=== PATIENT | male | born 1975 | race Caucasian/White ===

== ENCOUNTER 2019-07-26 10:02 | Emergency (ER) | payer OTHER ==
[2019-07-26 10:21] VITALS: BP 140/86; PULSE 98; TEMP 98.3; BMI 40.6
[2019-07-26] MEDS ORDERED: NAPROXEN 500 MG TABLET (FP) PO ONE (11:08)
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
[2019-07-26] MEDS ORDERED: NAPROXEN 500 MG TABLET (FP) ONE (11:23)
== END 2019-07-26 13:30 | disposition home or self-care (01) ==
LOC: JERFT 10:02
DX: M79.672 Pain in left foot (principal); V18.0XXA Pedal cycle driver injured in noncollision transport accident in nontraffic accident, initial encounter; Y92.488 Other paved roadways as the place of occurrence of the external cause; Y93.55 Activity, bike riding; Y99.8 Other external cause status; E11.9 Type 2 diabetes mellitus without complications; J45.909 Unspecified asthma, uncomplicated
CPT/HCPCS: 73610-TC-LT-FY; 73630-TC-LT; 99282-25

== ENCOUNTER 2020-02-09 18:32 | Emergency (ER) | payer OTHER | END 2020-02-09 19:12 | disposition home or self-care (01) | LOC: JER 18:32 | CPT/HCPCS: 99282-25 ==

== ENCOUNTER 2023-04-13 18:29 | Emergency (ER) | payer OTHER ==
[2023-04-13 18:35] VITALS: BMI 35.2
[2023-04-13] MEDS ORDERED: ACETAMINOPHEN 1000 MG/100 ML BAG IVPB ONE (19:03)
[2023-04-13] MEDS ORDERED: METHOCARBAMOL 500 MG TABLET PO ONE (19:03)
[2023-04-13] MEDS ORDERED: LIDOCAINE 5% TOPICAL PATCH TP ONE (19:03)
[2023-04-13] MEDS ORDERED: METHOCARBAMOL 500 MG TABLET ONE (19:25)
[2023-04-13] MEDS ORDERED: LIDOCAINE 5% TOPICAL PATCH ONE (19:25)
[2023-04-13] MEDS ORDERED: ACETAMINOPHEN INJECTION 100 ML IVPB ONE (19:25)
[2023-04-13] MEDS ORDERED: SODIUM CHLORIDE 0.9% 500 ML INFUS.BAG IV ONE (19:44)
[2023-04-13 19:59] LABS: EOS % 1.1 % (0-4.5); HEMATOCRIT 35.2 % (35.4-49); HEMOGLOBIN 12.1 GM/dL (11.7-16.9); LYMPH % 27.7 % (8-40); MCH 29.3 pg (25.7-33.7); MCHC 34.3 g/dl (32.0-35.9); MEAN CELL VOLUME 85.6 fl (80-96); MEAN PLT VOLUME 7.6 fl (7.5-11.1); MONO % 9.9 % (3.8-10.2); NEUT % 60.3 % (42.8-82.8); PLATELET COUNT 176 10^3/uL (134-434); RBC 4.11 M/mm3 (4.00-5.60); RDW 14.1 % (11.9-15.9); WHITE BLOOD COUNT 6.6 K/mm3 (4.0-10.0)
[2023-04-13] MEDS ORDERED: oxyCODONE HCL 5 MG TABLET PO ONE (20:57)
[2023-04-13] MEDS ORDERED: oxyCODONE HCL 5 MG TABLET ONE (21:11)
[2023-04-13 21:17] LABS: POTASSIUM 3.8 mmol/L (3.5-5.1)
[2023-04-13 21:18] VITALS: BP 151/97; PULSE 92; RESP 22; TEMP 98
[2023-04-13 21:20] LABS: BLOOD UREA NITROGEN 11.8 mg/dL (7-18)
[2023-04-13 21:23] LABS: CREATININE 0.7 mg/dL (0.55-1.3)
[2023-04-13 21:24] LABS: BILIRUBIN,TOTAL 0.5 mg/dL (0.2-1)
[2023-04-13 21:27] LABS: ALBUMIN 3.2 g/dl (3.4-5.0); TOT PROT 6.2 g/dl (6.4-8.2)
[2023-04-13] MEDS ORDERED: LIDOCAINE PATCH REMOVAL MC SCH (22:00)
== END 2023-04-13 22:09 | disposition home or self-care (01) ==
LOC: JER 18:29
PROC: 3E033NZ Introduction of Analgesics, Hypnotics, Sedatives into Peripheral Vein, Percutaneous Approach (ICD-10-PCS; principal; 2023-04-13)
DX: B02.29 Other postherpetic nervous system involvement (principal); M54.50 Low back pain, unspecified
CPT/HCPCS: 36415; 71045-TC-FY; 80053; 84484; 85025; 93005; 93010; 99285-25

== ENCOUNTER 2023-06-02 14:00 | Emergency (ER) | payer OTHER ==
[2023-06-02 14:13] VITALS: RESP 18; TEMP 97.5; BMI 33.6
[2023-06-02] MEDS ORDERED: KETOROLAC TROMETHAMINE 15 MG/ML VIAL IM ONE (16:00)
[2023-06-02] MEDS ORDERED: ACETAMINOPHEN 500 MG TABLET (FP) PO ONE (16:00)
[2023-06-02] MEDS ORDERED: ACETAMINOPHEN 500 MG TABLET (FP) ONE (16:08)
[2023-06-02] MEDS ORDERED: KETOROLAC TROMETHAMINE 30 MG/1 ML VIAL ONE (16:08)
[2023-06-02 17:18] VITALS: BP 128/71; PULSE 96
== END 2023-06-02 17:51 | disposition home or self-care (01) ==
LOC: JERFT 14:00
PROC: 3E0233Z Introduction of Anti-inflammatory into Muscle, Percutaneous Approach (ICD-10-PCS; principal; 2023-06-02)
DX: M54.50 Low back pain, unspecified (principal); B02.22 Postherpetic trigeminal neuralgia; G47.00 Insomnia, unspecified
CPT/HCPCS: 72100-TC-FY

== ENCOUNTER 2023-12-04 15:19 | Emergency (ER) | payer OTHER ==
[2023-12-04 15:40] VITALS: PULSE 104; RESP 18; BMI 27.1
[2023-12-04] MEDS ORDERED: SODIUM CHLORIDE 1,000 ML IV STA (16:13)
[2023-12-04] MEDS ORDERED: ACETAMINOPHEN 1000 MG/100 ML BAG IVPB ONE (16:13)
[2023-12-04] MEDS ORDERED: ACETAMINOPHEN INJECTION 100 ML IVPB ONE ×2 (16:22→16:25)
[2023-12-04 16:39] LABS: HEMATOCRIT 44.4 % (35.4-49); LYMPH % 27.3 % (8-40); MCH 29.6 pg (25.7-33.7); MCHC 33.8 g/dl (32.0-35.9); MEAN CELL VOLUME 87.5 fl (80-96); MONO % 9.7 % (3.8-10.2); PLATELET COUNT 254 10^3/uL (134-434); RBC 5.07 M/mm3 (4.00-5.60); RDW 13.6 % (11.9-15.9); WHITE BLOOD COUNT 7.5 K/mm3 (4.0-10.0)
[2023-12-04 16:49] LABS: ACTIVATED PTT 30.7 SECONDS (25.2-36.5); INR 0.96 (0.83-1.09); PROTHROMBIN TIME (PATIENT) 11.1 SEC (9.7-13.0)
[2023-12-04 16:56] LABS: POTASSIUM 4.2 mmol/L (3.5-5.1)
[2023-12-04 16:59] LABS: CALCIUM 9.2 mg/dL (8.5-10.1)
[2023-12-04 17:00] LABS: ALBUMIN 3.5 g/dl (3.4-5.0); BLOOD UREA NITROGEN 13.8 mg/dL (7-18)
[2023-12-04 17:03] LABS: CREATININE 0.8 mg/dL (0.55-1.3)
[2023-12-04 17:04] LABS: BILIRUBIN,TOTAL 0.3 mg/dL (0.2-1); TOT PROT 7.1 g/dl (6.4-8.2)
[2023-12-04 18:12] VITALS: BP 137/93; TEMP 98.6
== END 2023-12-04 19:22 | disposition home or self-care (01) ==
LOC: JER 15:19 → JERFT 15:19
PROC: 3E033NZ Introduction of Analgesics, Hypnotics, Sedatives into Peripheral Vein, Percutaneous Approach (ICD-10-PCS; principal; 2023-12-04)
PROC: 3E0337Z Introduction of Electrolytic and Water Balance Substance into Peripheral Vein, Percutaneous Approach (ICD-10-PCS; 2023-12-04)
DX: S22.32XA Fracture of one rib, left side, initial encounter for closed fracture (principal); W00.0XXA Fall on same level due to ice and snow, initial encounter; Y92.9 Unspecified place or not applicable
CPT/HCPCS: 36415; 71046-TC-FY; 71250-TC; 80053; 84484; 85025; 85610; 85730; 93005; 93010; 99285-25